=== PATIENT | female | born 1945 | race African-American/Black ===

== ENCOUNTER 2018-05-10 02:08 | Emergency (ER) | payer OTHER ==
[~2018-05-10] VITALS: Ht 162.6 cm; Wt 72.6 kg
[~2018-05-10 02:08] MED LIST: ASP325EC GT; CARV12.544 PO; DIG025T GT; HYDR12.527 GT; INSUINJ IJ; INSUINJ2 SC; LOSA-46 GT; NIFE20CA GT; SIMV10TA84 GT; [UNRECOGNIZED DRUG - CODE] GT
[2018-05-10 03:01] LABS: Basophils # (auto) 0 uL; Basophils % (auto) 0.3 % (0.0-2.0); Eosinophils # (auto) 0.1 uL; Hematocrit 47.5 % (36.0-46.0); Hemoglobin 15.8 g/dL (12.2-16.2); Lymphocytes # (auto) 0.7 uL; Lymphocytes % (auto) 6.6 % (10.0-50.0); Mean Corpuscular Hemoglobin 31.5 pg (28.0-32.0); Mean Corpuscular Hgb Conc. 33.2 g/dL (32.0-36.0); Mean Corpuscular Volume 94.9 fL (80.0-100.0); Monocytes # (auto) 0.7 uL; Neutrophils # (auto) 9.8 uL; Neutrophils % (auto) 86.1 % (37.0-80.0); Platelet Count (auto) 131 10^3/uL (140-450); Red Blood Cells 5.01 10^6/uL (4.0-5.20); Red Cell Distribution Width 14.3 % (11.8-14.3); White Blood Cell 11.3 10^3/uL (4.4-10.8)
[2018-05-10 03:19] LABS: Albumin 3.7 g/dL (3.4-5.0); BUN/Creatinine Ratio 25.6; Calcium 8.4 mg/dL (8.5-10.1); Magnesium 2.3 mg/dL (1.6-2.6); Potassium 3.6 mmol/L (3.5-5.1)
[2018-05-10 03:21] LABS: Lactic Acid w/Reflex 2.7 mmol/L (0.4-2.0)
[2018-05-10 03:25] LABS: Bilirubin, Total 0.7 mg/dL (0.2-1.0)
[2018-05-10 03:26] LABS: INR 1.13 (0.9-1.15); Partial Thromboplastin Time 24.5 sec (23.78-33.04)
[2018-05-10] MEDS ORDERED: FUROSEMIDE 20 MG/2 ML VIAL IV ONE (05:30)
[2018-05-10] MEDS ORDERED: cefTRIAXone 1GM/50ML D5W 50 ML IV ONE (05:30)
[2018-05-10 07:15] VITALS: BP 140/99
== END 2018-05-10 08:29 | disposition short-term general hospital (02) ==
LOC: ER 02:08 → EDBD 02:08 → ER 08:29
DX: I13.0 Hypertensive heart and chronic kidney disease with heart failure and stage 1 through stage 4 chronic kidney disease, or unspecified chronic kidney disease (principal); E11.22 Type 2 diabetes mellitus with diabetic chronic kidney disease; N18.9 Chronic kidney disease, unspecified; I50.9 Heart failure, unspecified; E87.1 Hypo-osmolality and hyponatremia; D72.829 Elevated white blood cell count, unspecified; E11.65 Type 2 diabetes mellitus with hyperglycemia; I48.91 Unspecified atrial fibrillation; E78.5 Hyperlipidemia, unspecified; Z90.710 Acquired absence of both cervix and uterus
CPT/HCPCS: 36415; 36600; 71045; 80053; 82805; 83605; 83735; 83880; 84484; 85025; 85379; 85610; 85730; 87040; 93005; 94660; 96365; 96375; 99285; J0696; J1940

== ENCOUNTER 2019-09-30 22:48 | Inpatient (IN) | payer OTHER, SELFPAY ==
[~2019-09-30] VITALS: Ht 165.1 cm; Wt 67.8 kg
[~2019-09-30 22:48] MED LIST changes: -HYDR12.527 GT; +HYDR12.55 GT; -LOSA-46 GT; +LOSA-69 GT
[2019-10-01] MEDS ORDERED: PIPERACILLIN-TAZOB 3.375GM 100 ML IV ONE (00:24)
[2019-10-01 00:53] LABS: Albumin 3.3 g/dL (3.4-5.0); BUN/Creatinine Ratio 42.6; Bilirubin, Total 0.6 mg/dL (0.2-1.0); Calcium 8.2 mg/dL (8.5-10.1); Magnesium 2.5 mg/dL (1.6-2.6); Total Protein 7.8 g/dL (6.4-8.2)
[2019-10-01 00:54] LABS: Urine Bacteria None Seen /hpf (None Seen); Urine WBC None Seen /hpf (0 - 5)
[2019-10-01 00:55] LABS: Basophils # (auto) 0 10 ^3/uL (0-0.2); Basophils % (auto) 0.5 % (0.0-2.0); Eosinophils # (auto) 0.1 10 ^3/uL (0-0.8); Eosinophils % (auto) 1.1 % (0.0-7.0); Hematocrit 44.1 % (36.0-46.0); Hemoglobin 14.5 g/dL (12.2-16.2); Lymphocytes # (auto) 0.8 10 ^3/uL (0.4-5.4); Lymphocytes % (auto) 13.2 % (10.0-50.0); Mean Corpuscular Hemoglobin 31.6 pg (28.0-32.0); Mean Corpuscular Hgb Conc. 32.8 g/dL (32.0-36.0); Mean Corpuscular Volume 96.5 fL (80.0-100.0); Monocytes # (auto) 0.6 10 ^3/uL (0-1.3); Monocytes % (auto) 10.5 % (0.0-12.0); Neutrophils # (auto) 4.3 10 ^3/uL (1.6-8.6); Neutrophils % (auto) 74.7 % (37.0-80.0); Nucleated Red Blood Cells % 0.2 %; Platelet Count (auto) 128 10^3/uL (140-450); Red Blood Cells 4.57 10^6/uL (4.0-5.20); Red Cell Distribution Width 14.9 % (11.8-14.3); White Blood Cell 5.7 10^3/uL (4.4-10.8)
[2019-10-01 02:08] LABS: Urine Blood Normal /uL (Negative); Urine Specific Gravity 1.017 (1.001-1.035)
[2019-10-01 02:09] LABS: Urine Amorphous Sediment Few /hpf
[2019-10-01] MEDS ORDERED: SODIUM CHLORIDE 0.9% 500 ML IV ONE (03:15)
[2019-10-01] MEDS ORDERED: ONDANSETRON HCL 4 MG/2 ML VIAL IV PRN (03:15)
[2019-10-01] MEDS ORDERED: MORPHINE SULF INJ 2 MG/ML SYRINGE 1ML IV PRN (03:15)
[2019-10-01] MEDS ORDERED: SODIUM CHLORIDE 0.9% 1,000 ML IV ONE (03:15)
[2019-10-01] MEDS ORDERED: NITROGLYCERIN 0.4 MG SL TAB SL PRN (03:15)
[2019-10-01] MEDS ORDERED: ALBUTEROL SULF 2.5 MG/0.5ML(0.5%) NEB SOLN NEB PRN (03:15)
[2019-10-01] MEDS ORDERED: DEXTROSE (50%) 50ML SYRG IV PRN (03:15)
[2019-10-01] MEDS ORDERED: TEMAZEPAM 15 MG CAP PO PRN (03:15)
[2019-10-01 03:19] VITALS: BP 97/49
--- NOTE | 2019-10-01 03:40 | NUR ---
Respiratory note: OUTSIDE OF PT'S ROOM, MONITORING PT'S RESPIRATORY STATUS. PT PRESENTING NO RESPIRATORY DISTRESS AT THIS TIME. RN WENT INTO ROOM IN FULL PPE, PT PLACED ON 4L NC, TOLERATING WELL. SPO2 NOTED AT 96%. MED NEB TX NOT INDICATED AT THIS TIME. WILL CONTINUE TO MONITOR.
[2019-10-01 05:00] VITALS: BP 146/76
--- NOTE | 2019-10-01 05:04 | NUR ---
Telemetry admit from ER [facility] admitted to Telemetry unit after SBAR received. Patient aphasic and sleeping. Patient now on continuous telemetry monitoring, tele box #4 and telemetry reading on arrival to unit is atrial fibrillation. Patient placed on bedside oxygen at 4 l/min NC. Bed is in lowest positiona nd locked. Negative pressure filtration unit in room and activated.
--- NOTE | 2019-10-01 05:05 | NUR ---
Assumed care of patient, asleep and unresponsive. Patient is aphasic. Bed is in lowest position and locked. Call light within reach. Board updated. Tele box number 4. Patient is in atrial fibrillation rhythm at 64. Tele box number matches monitor and leads are in correct placement. No S/S of distress/SOB or pain. Will continue to monitor for changes Q1hr and PRN. Addendum: 10/01/19 at 0744 by JYOTHI ESQUEDA RN Wrong note. Disregard
[2019-10-01] MEDS ORDERED: ACCU-CHEK COMFORT CURVE STRIP VI SCH (06:00)
[2019-10-01] MEDS ORDERED: InsuLIN REG 1unit/0.01ml Soln (100units/ml) SC SCH (06:00)
[2019-10-01] MEDS ORDERED: CARV25TA55 PO (06:35)
[2019-10-01] MEDS ORDERED: DILT60TA28 PO (06:35)
[2019-10-01] MEDS ORDERED: FURO1TAB33 PO (06:35)
--- NOTE | 2019-10-01 08:03 | NUR ---
Respiratory note: Assessed pt for prn medneb tx. HR 64, RR 18, SPO2 99% on 4LPM nasal cannula. Breath sounds diminished/clear. Pt sleeping comfortably in bed, no s/s of respiratory distress noted. Medneb tx not indicated at this time.
[2019-10-01 09:00] VITALS: BP 134/98
[2019-10-01] MEDS ORDERED: PHENYTOIN 100 MG/4 ML SUSP GT SCH (10:00)
[2019-10-01] MEDS ORDERED: CARVEDILOL 12.5 MG TAB PO SCH (10:00)
[2019-10-01] MEDS ORDERED: AZITHROMYCIN 500MG/ 250ML 250 ML IV SCH (10:00)
[2019-10-01] MEDS: cefTRIAXone 1GM/50ML D5W 50 ML IV SCH (10:28)
[2019-10-01] MEDS: PANTOPRAZOLE 40 MG/10 ML VIAL INJ IV SCH (10:29)
[2019-10-01] MEDS: DIGOXIN 0.25 MG TAB PO SCH (10:30)
[2019-10-01] MEDS: ENOXAPARIN SOD 40 MG/0.4 ML SYRINGE SC SCH (10:31)
--- NOTE | 2019-10-01 11:15 | NUR ---
WOUND CARE NOTE: WOUND CARE TEAM IN TO SEE PATIENT PER WOUND CARE REQUEST FOR LOW FRAN SCORE. PATIENT HAS FRAN SCORE OF 12. PATIENT ADMITTED TO [facility] FOR ATYPICAL PNEUMONIA. PATIENT ON DROPLET AND CONTACT ISOLATION. BEDSIDE NURSE ADVISED PATIENT HAS NO WOUNDS. RECOMMEND: BID/PRN APPLICATIONS WITH MOISTURE BARRIER CREAM, OPTIFOAM GENTLE SACRAL DRESSING. FREQUENT TURN SCHEDULED H3AADNK CONDITION PERMITS. PRESSURE REDISTRIBUTION WITH PILLOWS/WEDGES. DIETARY CONSULT. SKIN/WOUND CARE PLAN.
--- NOTE | 2019-10-01 12:45 | NUR ---
Dr. Krishnan at bedside placed new orders.
[2019-10-01 13:00] VITALS: BP 122/64
[2019-10-01] MEDS ORDERED: Jevity 1.2 Cal/Fiber 1 Liter GT SCH (13:00)
[2019-10-01] MEDS ORDERED: FUROSEMIDE 100 MG/10ML VIAL IV ONE (13:00)
[2019-10-01] MEDS ORDERED: ASPirin 81 mg TAB PO ONE (13:15)
[2019-10-01] MEDS: AZITHROMYCIN 500MG/ 250ML 250 ML IV SCH (14:56)
[2019-10-01 17:00] VITALS: BP 134/98
[2019-10-01] MEDS: CARVEDILOL 12.5 MG TAB PO SCH (18:18)
--- NOTE | 2019-10-01 19:25 | NUR ---
Opening Shift Note Assumed care of patient, awake and alert to self, patient turned head when name was called and grunted. No S/S of distress/SOB or pain. Call light is within reach, fall precautions are in place, bed is in lowest position, ca is in place and hung below bladder draining yellow urine. Verified placement of the peg tube by aspiration and auscultation. Residual of feeding was 15cc, replaced the residual and continued the feeding. The Jevity is currently running at 30 mls/hr. The dayshift RN explained the patient had 60 cc residual with the feeing running at 40 mls/hr, so she slowed it down. Will continue to monitor for changes Q1hr and PRN.
[2019-10-01 21:16] VITALS: BP 139/71
--- NOTE | 2019-10-01 21:39 | NUR ---
Patient's daughter called, password provided. She was updated on patient's status and current plan of care. All questions and concerns answered.
[2019-10-01] MEDS: ATORVASTATIN 20 MG TAB PO SCH (21:59)
--- NOTE | 2019-10-01 21:59 | NUR ---
2200 MEDICATION GIVEN Jevity feeding stopped, verified placement via auscultation, checked residual 10cc and replaced it, and Lipitor was given. Patient is in the semi-fowlers position. Call light is within reach. Will continue to monitor.
--- NOTE | 2019-10-01 22:51 | NUR ---
Report given to Thelma BAUM. All questions and concerns answered. Patient is sitting up in bed. Call light is within reach, bed is in lowest position, bed alarm is on.
[2019-10-02 05:00] VITALS: BP 144/77
[2019-10-02 06:00] LABS: Basophils # (auto) 0 10 ^3/uL (0-0.2); Basophils % (auto) 0.7 % (0.0-2.0); Eosinophils # (auto) 0.1 10 ^3/uL (0-0.8); Eosinophils % (auto) 2.1 % (0.0-7.0); Hematocrit 42.1 % (36.0-46.0); Hemoglobin 14.3 g/dL (12.2-16.2); Lymphocytes % (auto) 18.8 % (10.0-50.0); Mean Corpuscular Hemoglobin 32.7 pg (28.0-32.0); Monocytes # (auto) 0.6 10 ^3/uL (0-1.3); Monocytes % (auto) 11.6 % (0.0-12.0); Neutrophils # (auto) 3.4 10 ^3/uL (1.6-8.6); Neutrophils % (auto) 66.8 % (37.0-80.0); Nucleated Red Blood Cells % 0.1 %; Platelet Count (auto) 138 10^3/uL (140-450); Red Blood Cells 4.39 10^6/uL (4.0-5.20); Red Cell Distribution Width 14.8 % (11.8-14.3); White Blood Cell 5.1 10^3/uL (4.4-10.8)
[2019-10-02 06:11] LABS: Potassium 3.8 mmol/L (3.5-5.1)
[2019-10-02 06:20] LABS: BUN/Creatinine Ratio 38.9; Calcium 8.6 mg/dL (8.5-10.1)
[2019-10-02 08:37] VITALS: BP 140/63
--- NOTE | 2019-10-02 09:05 | NUR ---
2019 novel coronavirus nasopharyngeal specimen collected 10/01/2019 at 0430 resulted Not Detected from [facility].
[2019-10-02] MEDS: CARVEDILOL 12.5 MG TAB PO SCH ×2 (09:27→18:00)
--- NOTE | 2019-10-02 09:27 | NUR ---
IV HL. PEG TUBE FEEDING HELD. FLUSHED. TO RADIOLOGY FOR CT WITH STAFF. TRANSPORTED WITH MONITORING.
--- NOTE | 2019-10-02 09:50 | NUR ---
RETURNS FROM CT. SUCTIONED AIRWAY BITES ON YANKER. NOT FOLLOWING COMMANDS. WITHDRAWS TO STIMULUS. ORAL CARE PROVIDED. FACE WASHED. RESUMED FEEDINGS. HEALS FLOATED. SHEETS FREE OF WRINKLES TUBING AWAY FROM SKIN. IVPB ANTIBIOTICS INFUSING.
[2019-10-02] MEDS: DIGOXIN 0.25 MG TAB PO SCH (10:08)
[2019-10-02] MEDS: FUROSEMIDE 100 MG/10ML VIAL IV SCH (10:08)
[2019-10-02] MEDS: PANTOPRAZOLE 40 MG/10 ML VIAL INJ IV SCH (10:08)
[2019-10-02] MEDS: cefTRIAXone 1GM/50ML D5W 50 ML IV SCH (10:09)
[2019-10-02] MEDS: ENOXAPARIN SOD 40 MG/0.4 ML SYRINGE SC SCH (10:09)
--- NOTE | 2019-10-02 10:30 | NUR ---
MANASSAS VP [employer] CALLS FOR UPDATE. ANSWERED ALL QUESTIONS. PROVIDED ALL LAB RESULTS. READ IMPRESSION FROM CT TAKEN THIS AM. MANASSAS VP [employer] ASKS IF THERE IS AN ORDER TO TRANSFER HER. NOT AT THIS TIME. MANASSAS VP [employer] ASKS IF THE FAMILY WANTS HER TO BE TRANSFERRED. FAMILIES WISHES ARE UNKNOWN. I ASKED IF MANASSAS IS REQUESTING HER TO BE TRANSFERRED AND HER REPLY WAS UNKNOWN.
[2019-10-02] MEDS: ASPirin 81 mg TAB PO SCH (11:00)
[2019-10-02] MEDS: AZITHROMYCIN 500MG/ 250ML 250 ML IV SCH (11:00)
[2019-10-02] MEDS: LOSARTAN POTASSIUM 50 MG TAB PO SCH (11:00)
--- NOTE | 2019-10-02 12:00 | NUR ---
FEEDING INCREASED TO GOAL 40CC/HR. TOLERATING 3L O2 NC SAT 99%.
[2019-10-02 12:36] VITALS: BP 141/64
--- NOTE | 2019-10-02 13:00 | NUR ---
NUTRITION ASSESSMENT NOTES Please refer to link notes of nutrition screen form filed under the intervention section of the plan of care for further details. Est. Energy Needs: 9413-3058 kcal (20-25 kcal/kg BW). Est. Protein Needs: 69-83 gms/day (1.0-1.2 gms/kg BW). Will continue to monitor pertinent labs and reassess nutrient need prn Addendum: 10/02/19 at [address] Amended: Links added.
--- NOTE | 2019-10-02 13:00 | NUR ---
DAUGHTER CALLS FOR UPDATE. LUANNESINGH EXPRESSES DESIRE TO HAVE PATIENT RESUME SAME BRAND OF FEEDINGS SHE HAS BEEN GETTING AT HOME. TALKS DIRECTLY WITH DR. GUSTAFSON ON THE PHONE.
--- NOTE | 2019-10-02 14:10 | NUR ---
CALL TO CARDIAC ECHO TO ASK FOR BEDSIDE ECHO REQUESTED BY DR. GUSTAFSON EARLIER. ENDO TECH CALLS YET AGAIN AND STATES SHE HAS BEEN IN CONTACT WITH OUR ENDO TECH AND ASKS AGAIN IF THERE IS AN ORDER TO TRANSFER. MADE DR. GORDON AWARE.
[2019-10-02] MEDS ORDERED: Glucerna 1.2 Cal 1Liter BOTTLE GT SCH (14:45)
[2019-10-02 17:05] VITALS: BP 130/74
--- NOTE | 2019-10-02 18:00 | NUR ---
PT HAS BEEN MOVED TO ROOM 234. CHART PREPARED FOR TRANSPORT TO [place]. TOLERATING GOAL FEEDING RATE. LEFT ARM POSTURING, TURNED INWARD. HEALS FLOATED. REPOSITIONED OFTEN.
--- NOTE | 2019-10-02 19:20 | NUR ---
Assumed care of patient from [facility] Assumed care of patient from Alan, day shift RN, who stated that patient will not be transferred tonight due to social welfare clerk needing to set arrangements for transfer despite transfer order. Will continue to monitor. Upon entering room, patient is resting with eyes closed. Fall, safety, and seizure precautions are in place. Patient opens eyes to light pain and does not follow commands. Patient noted to move hand to scratch head. Patient is noted to have pupils equal, round, reactive to light, and accommodating. Plan of care discussed with patient, reinforcement needed. Will continue to monitor q1h and prn.
--- NOTE | 2019-10-02 20:00 | NUR ---
Jevity increase Patient's residual is 10ml/hr and has positive placement upon auscultation. Current rate is at 40ml/hr. Per MD to reach goal of 55ml/hr, patient's feeding is increased to 45ml/hr at this time. Will continue to monitor.
--- NOTE | 2019-10-02 20:30 | NUR ---
House soup paged to obtain more jevity. Awaiting response.
--- NOTE | 2019-10-02 21:30 | NUR ---
delilah soubi paged for more jevity which is running low and not available. awaiting call back
[2019-10-02] MEDS: ATORVASTATIN 20 MG TAB PO SCH (21:42)
[2019-10-02 22:00] VITALS: BP 137/63
--- NOTE | 2019-10-03 | NUR ---
Jevity increase Residual is 12ml and has positive placement upon auscultation. Per MD order, feeding increased to 50ml/hr. Will continue to monitor
--- NOTE | 2019-10-03 04:00 | NUR ---
Jevity increase Residual is 7ml and has positive placement upon auscultation. Per MD order, feeding increased to 55ml/hr. Will continue to monitor
[2019-10-03 05:51] VITALS: BP 134/68
--- NOTE | 2019-10-03 06:13 | NUR ---
DILANTIN CRITICAL Dilantin critical lab value of 38.8. Paged on-call hosp. Awaiting call-back. Will continue to monitor patient.
[2019-10-03 06:14] LABS: Anion Gap 8 (5-15); BUN/Creatinine Ratio 33.8; Blood Urea Nitrogen 22 mg/dL (7-18); Calcium 8.1 mg/dL (8.5-10.1); Carbon Dioxide 27 mmol/L (21-32); Chloride 105 mmol/L (98-107); GFR African American 114 mL/min; GFR Non-African American 94 mL/min; Glucose 129 mg/dL (74-106); Potassium 3.6 mmol/L (3.5-5.1); Sodium 140 mmol/L (136-145)
--- NOTE | 2019-10-03 07:35 | NUR ---
Opening shift note Care of patient assumed from NOC BAUTISTA munoz. Patient is AOx0, patient is aphasic but i am able to arouse her by saying her name and touch. Patient is on 3l NC, also running 1.2 jevity at 55ml/hr via PEG tube. no s/s of pain or distress noted at this time. Bed is in the lowest locked position. Will continue to monitor Q1HR and PRN.
[2019-10-03 09:00] VITALS: BP 139/75
--- NOTE | 2019-10-03 10:00 | NUR ---
Spoke to family Spoke to daughter Judith regarding patient status and transfer. Updated her that patient is stable and that i am awaiting the Physician to round to update for plan of care today.
--- NOTE | 2019-10-03 10:10 | NUR ---
Spoke to [facility] Spoke to caser up Ciaran at [facility] regarding patient status. Updated Ciaran on morning labs and vital signs. Ciaran stated that [facility] is still waiting for physician orders for transfer. I will contact Dr. Morse regarding transfer.
[2019-10-03] MEDS: cefTRIAXone 1GM/50ML D5W 50 ML IV SCH (10:14)
[2019-10-03] MEDS: PANTOPRAZOLE 40 MG/10 ML VIAL INJ IV SCH (10:15)
[2019-10-03] MEDS: ASPirin 81 mg TAB PO SCH (10:15)
[2019-10-03] MEDS: ENOXAPARIN SOD 40 MG/0.4 ML SYRINGE SC SCH (10:15)
[2019-10-03] MEDS: FUROSEMIDE 100 MG/10ML VIAL IV SCH (10:29)
[2019-10-03] MEDS: LOSARTAN POTASSIUM 50 MG TAB PO SCH (10:29)
[2019-10-03] MEDS: DIGOXIN 0.25 MG TAB PO SCH (10:29)
--- NOTE | 2019-10-03 10:35 | NUR ---
Spoke to Dr. Morse regarding the transfer to [facility]. Per MD he will be calling [facility] and proved update on patients status.
--- NOTE | 2019-10-03 11:00 | NUR ---
Spoke to family Spoke to daughter Judith, she wishes to speak to attending physician regarding test results and transfer order. I told her i will relay the message and have MD call her back.
--- NOTE | 2019-10-03 12:20 | NUR ---
Physician at bedside Per Dr Morse patient is stable to be transferred to [place]. I was present when he updated family via telephone regarding patient test results, and plan of care for today.
[2019-10-03 13:00] VITALS: BP 146/71
--- NOTE | 2019-10-03 13:15 | NUR ---
Recieved call back from [facility] Spoke to Ciaran from [facility], she spoke to patients daughter Judith regarding transfer. Per Ciaran, Judith stated not wanting her mom to be transferred to [facility]. Will update physician on status change.
--- NOTE | 2019-10-03 13:40 | NUR ---
Called family Called Judith regarding wishes to not have the patient transferred to [place]. Per Judith she would prefer to have her mother stay in [facility] and continue care here. Will update MD Morse regarding family wishes.
--- NOTE | 2019-10-03 13:43 | NUR ---
Called MD santa. Unable to reach MD Santa, left a message regarding Judith's wishes about not wanting her mother to be transferred to [place]. Awaiting call back.
--- NOTE | 2019-10-03 14:02 | NUR ---
Received call back from MD Morse. Updated MD regarding Anaid wishes to not have her mother transferred to [place]. Per MD he states he would prefer to have patient transferred to [place] and receive care there. Per MD continue current treatment plan if family decides to have patient stay at [facility]. I will call and update sushant.
--- NOTE | 2019-10-03 14:17 | NUR ---
Called family back. Confirmed with Judith that she would like her mother to stay here at [facility] and continue her current care and treatments. I updated her that MD Morse stated he would prefer her be transferred to [facility] due to her insurance being the [facility] [employer]. Judith verbalized understanding but would still like to continue care here.
[2019-10-03 17:00] VITALS: BP 128/90
[2019-10-03] MEDS: CARVEDILOL 12.5 MG TAB PO SCH (17:31)
--- NOTE | 2019-10-03 19:10 | NUR ---
closing shift note care of patient endorsed to NOC BAUTISTA Tim. No s/s of distress noted at this time.
--- NOTE | 2019-10-03 19:30 | NUR ---
Assumed care of patient. Patient is resting with eyes closed. Fall, safety, and seizure precautions are in place. Patient opens eyes to voice and does not follow commands. Patient noted to have pupils equal, round, reactive to light, and accommodating. Feeding running at 55ml/hr with positive placement upon auscultation and 11ml of residuals. Plan of care discussed with patient, reinforcement needed. Will continue to monitor q1h and prn.
[2019-10-03] MEDS: ATORVASTATIN 20 MG TAB PO SCH (21:50)
[2019-10-03 22:00] VITALS: BP 142/93
--- NOTE | 2019-10-04 04:30 | NUR ---
Patient noted to have increased respirations and increased heart rate Respirations 24 bpm and heart rate 120 bpm. On-call hosp paged. Awaiting call back.
--- NOTE | 2019-10-04 04:35 | NUR ---
Received call back from on-call hosp New orders received. Will carry out. Will continue to monitor patient.
[2019-10-04] MEDS ORDERED: IPRATROPIUM BROM 0.5 MG/2.5ML INH SOL ONE (04:43)
[2019-10-04] MEDS ORDERED: ALBUTEROL SULF 2.5 MG/0.5ML(0.5%) NEB SOLN ONE (04:43)
[2019-10-04] MEDS ORDERED: FUROSEMIDE 20 MG/2 ML VIAL IV ONE (04:45)
[2019-10-04] MEDS: IPRATROPIUM BROM 0.5 MG/2.5ML INH SOL NEB PRN (04:54)
[2019-10-04] MEDS: ALBUTEROL SULF 2.5 MG/0.5ML(0.5%) NEB SOLN NEB PRN (04:54)
[2019-10-04] MEDS ORDERED: FUROSEMIDE 100 MG/10ML VIAL IV ONE (05:15)
--- NOTE | 2019-10-04 05:15 | NUR ---
Paged on-call hosp Paged on-call hosp to update on results of new order and patient condition. Awaiting call back. Will continue to monitor patient.
--- NOTE | 2019-10-04 05:16 | NUR ---
Patient on bipap. Will continue to monitor.
[2019-10-04 05:17] VITALS: BP 139/101
--- NOTE | 2019-10-04 05:25 | NUR ---
On-call hosp called back Received call back, updated on patient status. New order received. Will carry out.
[2019-10-04] MEDS ORDERED: LORazepam 2MG/ML-1ML VIAL IV ONE (05:30)
[2019-10-04 05:42] VITALS: BP 145/102
[2019-10-04] MEDS: CARVEDILOL 12.5 MG TAB PO SCH ×2 (08:00→18:14)
--- NOTE | 2019-10-04 08:04 | NUR ---
Respiratory note: NO BREATHING TX INDICATED AT THIS TIME. WILL CONTINUE TO MONITOR PT.
--- NOTE | 2019-10-04 08:04 | NUR ---
Respiratory note: TOOK PT OFF OF BIPAP, PT RR 18, HR 75, SPO2 98%. PT IS CURRENTLY ON 3 L NASAL CANNULA. NO S/S OF RESPIRATORY DISTRESS. WILL CONTINUE TO MONITOR PT. Addendum: 10/04/19 at 0937 by RODRIGUE IRAHETA, RT RT BAUTISTA MCCLAIN IS AWARE.
[2019-10-04 09:13] VITALS: BP 109/57
[2019-10-04] MEDS: cefTRIAXone 1GM/50ML D5W 50 ML IV SCH (10:44)
[2019-10-04] MEDS: FUROSEMIDE 100 MG/10ML VIAL IV SCH (10:45)
[2019-10-04] MEDS: PANTOPRAZOLE 40 MG/10 ML VIAL INJ IV SCH (10:45)
[2019-10-04] MEDS: ENOXAPARIN SOD 40 MG/0.4 ML SYRINGE SC SCH (10:45)
[2019-10-04] MEDS: AZITHROMYCIN 500MG/ 250ML 250 ML IV SCH (10:45)
[2019-10-04] MEDS: DIGOXIN 0.25 MG TAB PO SCH (10:45)
[2019-10-04 11:50] VITALS: BP 156/82
--- NOTE | 2019-10-04 12:30 | NUR ---
Glucerna 1.2 feeding Spoke with daughter who expressed concern regarding patient receiving Jevity 1.2. She said the patient has been on it before and it "caused her to be diabetic". This nurse informed Dr. Krishnan, who said he had changed the feeding on Friday from Jevity 1.2 to Glucerna 1.2. This nurse called [facility] and informed them and requested a bottle of the Glucerna 1.2. Received a call back stating that they had spoken with the nurse Friday and was told that the patient would be transferring to [place] so they did not send the Glucerna. They stated they would send it up right away. Unknown if patient will be transferring to [place] as the patient's family stated they would rather have her treated here and didn't feel like transferring her in an ambulance to [place] in the state she is in would be a good idea. Dr. Krishnan spoke with the daughter and gave her an update.
--- NOTE | 2019-10-04 12:39 | NUR ---
NUTRITION FOLLOWUP NOTES Pt wt is 69.9 kg today Pt was sleeping when rounded this morning, on EN nutrition support of Jevity 1.2 @ 55 ml/hr. Pt with no noted distress per RN doc. Will continue to monitor and followup prn. Est. Energy Needs: 1971-1381 kcal (20-25 kcal/kg BW). Est. Protein Needs: 69-83 gms/day (1.0-1.2 gms/kg BW). Will continue to monitor pertinent labs and reassess nutrient need prn LABS: GI: BS: PES: Problem 1) Altered nutrition related lab values r/t current medical condition aeb hyperglycemia, hypoalbuminemia 2) Inadequate enteral nutrition infusion r/t current energy and protein needs aeb current EN support with Jevity 1.2 @40ml/hr not meeting energy and protein needs Comments Will continue to monitor NPO status, skin status, pertinent labs and weight trend. F/u in 2 to 3 days. Recommendations: 1) Increase goal rate of EN infusion of Jevity 1.2 Andre to @55 ml/hr, as tolerated when medically appropriate. (RESOLVED) 2) Advance gradually to oral diet when medically appropriate. 3) Continue current plan of care. Addendum: 10/04/19 at [address] PLEASE NOTE THE FOLLOWING UPDATED NOTES LABS: Gluc 129 H, Ca 8.1 L, Alb 3.3 L, Tot Protein WNL GI: Last BM unknown per RN doc. BS: 13 moderate risk. Please refer to wound assessment report for full details
[2019-10-04 17:00] VITALS: BP 138/70
--- NOTE | 2019-10-04 19:35 | NUR ---
Opening Shift Note Assumed care of patient, eyes closed resting in bed responsive to light pain. Patient has 1.2 Glucerna running through PEG. Placement confirmed upon auscultation, residuals 25ml. No S/S of distress/SOB or pain. Fall, safety, and seizure precautions in place. Instructed on POC. Will continue to monitor for changes Q1hr and PRN.
[2019-10-04 22:00] VITALS: BP 140/56
[2019-10-04] MEDS: ACETAMINOPHEN 325 MG TAB PO PRN (22:06)
[2019-10-04] MEDS: ATORVASTATIN 20 MG TAB PO SCH (22:06)
--- NOTE | 2019-10-04 22:06 | NUR ---
TEMP AXILLARY TEMP 99.1. COOLING MEASURES INITIATED, ADDITIONALLY SEE EMAR FOR ADMINISTRATION. WILL CONTINUE TO MONITOR.
--- NOTE | 2019-10-04 23:06 | NUR ---
TEMP RECHECK AXILLARY TEMP RECHECKED AT THIS TIME 97.1 F. WILL CONTINUE TO MONITOR.
[2019-10-05 05:00] VITALS: BP 131/76
[2019-10-05 05:51] LABS: Basophils # (auto) 0 10 ^3/uL (0-0.2); Basophils % (auto) 0.6 % (0.0-2.0); Eosinophils # (auto) 0.1 10 ^3/uL (0-0.8); Eosinophils % (auto) 1.7 % (0.0-7.0); Hematocrit 42.5 % (36.0-46.0); Hemoglobin 14.3 g/dL (12.2-16.2); Lymphocytes % (auto) 15.1 % (10.0-50.0); Mean Corpuscular Hemoglobin 32.7 pg (28.0-32.0); Mean Corpuscular Hgb Conc. 33.6 g/dL (32.0-36.0); Mean Corpuscular Volume 97.3 fL (80.0-100.0); Monocytes # (auto) 0.9 10 ^3/uL (0-1.3); Monocytes % (auto) 12.7 % (0.0-12.0); Neutrophils # (auto) 4.8 10 ^3/uL (1.6-8.6); Neutrophils % (auto) 69.9 % (37.0-80.0); Nucleated Red Blood Cells % 0.1 %; Platelet Count (auto) 138 10^3/uL (140-450); Red Blood Cells 4.37 10^6/uL (4.0-5.20); Red Cell Distribution Width 14.8 % (11.8-14.3); White Blood Cell 6.9 10^3/uL (4.4-10.8)
[2019-10-05 06:14] LABS: BUN/Creatinine Ratio 36.1; Calcium 8.5 mg/dL (8.5-10.1); Potassium 3.9 mmol/L (3.5-5.1)
--- NOTE | 2019-10-05 06:35 | NUR ---
ON-CALL HOSP PAGED RECEIVED PHENYTOIN CRITICAL OF 30.6. ON-CALL HOSP PAGED. AWAITING CALL-BACK. WILL CONTINUE TO MONITOR.
--- NOTE | 2019-10-05 06:40 | NUR ---
RECEIVED CALL BACK FROM ON-CALL HOSP UPDATED ON-CALL HOSP OF CRITICAL AND PATIENT STATUS. ORDER TO HOLD DILANTIN. WILL CONTINUE TO MONITOR.
--- NOTE | 2019-10-05 07:15 | NUR ---
Opening Shift Note Assumed care of patient, eyes open, resting in bed responsive to light pain. Patient has 1.2 Glucerna running through PEG. No S/S of distress/SOB or pain. Fall, safety, and seizure precautions in place. Instructed on POC. Will continue to monitor for changes Q1hr and PRN.
[2019-10-05] MEDS: ALBUTEROL SULF 2.5 MG/0.5ML(0.5%) NEB SOLN NEB PRN (07:25)
[2019-10-05] MEDS: IPRATROPIUM BROM 0.5 MG/2.5ML INH SOL NEB PRN (07:25)
[2019-10-05 09:00] VITALS: BP 133/67
--- NOTE | 2019-10-05 09:00 | NUR ---
ZERO RESIDUAL CHECKED FROM PEG TUBE FEEDING
[2019-10-05] MEDS: ASPirin 81 mg TAB PO SCH (09:49)
[2019-10-05] MEDS: AZITHROMYCIN 500MG/ 250ML 250 ML IV SCH (09:50)
[2019-10-05] MEDS: PANTOPRAZOLE 40 MG/10 ML VIAL INJ IV SCH (09:50)
[2019-10-05] MEDS: CARVEDILOL 12.5 MG TAB PO SCH ×2 (09:50→18:10)
[2019-10-05] MEDS: ENOXAPARIN SOD 40 MG/0.4 ML SYRINGE SC SCH (09:50)
[2019-10-05] MEDS: cefTRIAXone 1GM/50ML D5W 50 ML IV SCH (09:51)
[2019-10-05] MEDS: LOSARTAN POTASSIUM 50 MG TAB PO SCH (09:51)
--- NOTE | 2019-10-05 10:00 | NUR ---
HAD FORM/SOFT BOWEL MOVEMENT,PEG TUBE FEEDING PAUSED,A.M. CARE AND ORAL CARE DONE,TURN TO LEFT SIDE,TUBE FEEDING RESUMED AND HOB UP TO 45 DEGREES.
--- NOTE | 2019-10-05 12:25 | NUR ---
MD VISIT HERE TO SEE AND EXAMINED PATIENT.INFORMED OF PATIENT DAUGHTER REQUEST TO REPEAT CT SCAN,PER MD NOT REPEATING AT THIS TIME.
[2019-10-05] MEDS ORDERED: FUROSEMIDE 20 MG/2 ML VIAL IV ONE (12:30)
[2019-10-05 13:00] VITALS: BP 131/57
--- NOTE | 2019-10-05 13:00 | NUR ---
ZERO RESIDUAL CHECKED FROM PEG TUBE FEEDING
[2019-10-05] MEDS ORDERED: FUROSEMIDE 100 MG/10ML VIAL IV ONE (13:45)
--- NOTE | 2019-10-05 16:32 | NUR ---
HAD FORM/SOFT BOWEL MOVEMENT,PEG TUBE FEEDING PAUSED,P.M. CARE AND ORAL CARE DONE,TURN TO RIGHT SIDE,TUBE FEEDING RESUMED AFTER CLEANING AND HOB UP TO 45 DEGREES.
[2019-10-05 16:41] VITALS: BP 139/82
--- NOTE | 2019-10-05 18:00 | NUR ---
ZERO RESIDUAL CHECKED FROM PEG TUBE FEEDING
[2019-10-05 19:14] VITALS: BP 126/76
--- NOTE | 2019-10-05 19:14 | NUR ---
Respiratory note: NO PRN TX GIVEN AT THIS TIME, NOT INDICATED. PT SLEEPING COMFORTABLY ON 3L NC, SPO2 96%, HR 81, RR 16. BIPAP AT BEDSIDE, NOT INDICATED AT THIS TIME. PT REMAINS ON BEDSIDE PULSE OX MONITOR, NO SOB NOTED.
--- NOTE | 2019-10-05 19:20 | NUR ---
Opening Shift Note Assumed care of patient. Patient is awake. No S/S of distress/SOB or pain. Will continue to monitor for changes Q1hr and PRN. Bed locked in lowest position and bed rails up x2. Call light within reach. Toro intact, patent, draining to gravity and below level of bladder. Oxygen via NC present at 3lpm.
--- NOTE | 2019-10-05 19:28 | NUR ---
REPORT AND CONTINUATION OF CRE GIVEN TO NOC SHIFT INCOMING RN,NO DISTRESS NO DISCOMFORT.
[2019-10-05 21:46] VITALS: BP 126/76
--- NOTE | 2019-10-05 22:00 | NUR ---
Checked for residual from PEG tube. No residual present. Will continue to monitor changes Q1H and PRN.
[2019-10-05] MEDS: ATORVASTATIN 20 MG TAB PO SCH (22:21)
--- NOTE | 2019-10-06 04:30 | NUR ---
Checked for residual from PEG tube. No residual present. Will continue to monitor changes Q1H and PRN.
[2019-10-06 05:00] VITALS: BP 139/71
--- NOTE | 2019-10-06 06:38 | NUR ---
Critical lab value Lab called about elevated Dilantin level of 25.8. Lab value elevated yet decreased from last value.
--- NOTE | 2019-10-06 07:20 | NUR ---
Opening Shift Note Assumed care of patient, awake and alert but aphesic, can track with her eyes. No S/S of distress/SOB or pain.Continues on o2. Instructed on POC and to call for assist PRN, will continue to monitor for changes Q1hr and PRN.
[2019-10-06 09:00] VITALS: BP 144/79
[2019-10-06] MEDS: cefTRIAXone 1GM/50ML D5W 50 ML IV SCH (10:04)
[2019-10-06] MEDS: AZITHROMYCIN 200 MG/5 ML ORAL SUSP GT SCH (10:04)
[2019-10-06] MEDS: PANTOPRAZOLE 40 MG/10 ML VIAL INJ IV SCH (10:04)
[2019-10-06] MEDS: CARVEDILOL 12.5 MG TAB PO SCH ×2 (10:04→17:46)
[2019-10-06] MEDS: LOSARTAN POTASSIUM 50 MG TAB PO SCH (10:05)
[2019-10-06] MEDS: ASPirin 81 mg TAB PO SCH (10:05)
[2019-10-06] MEDS: ENOXAPARIN SOD 40 MG/0.4 ML SYRINGE SC SCH (10:06)
[2019-10-06] MEDS: DIGOXIN 0.125 MG TAB PO SCH (10:06)
--- NOTE | 2019-10-06 12:50 | NUR ---
RT NOTE: PRN BREATHING TX. NOT INDICATED AT THIS TIME. PT. SLEEPING, NO S/S OF RESPIRATORY DISTRESS NOTED. PT. HR 67, RR 12, POX 95% 2L N/C. PT. ON CONTINUOUS POX MONITOR.
[2019-10-06 13:00] VITALS: BP 138/76
--- NOTE | 2019-10-06 14:15 | NUR ---
assessment Patient is a 74 year old female who is aphasic. Per patients daughter Judith prior to admission patient lived home with her and functioned with assistance. Patients PCP is Dr Cleveland at [facility]. Judith is refusing transfer. Patient has a hospital bed, wheelchair, suction machine, and nebulizer for home use. Patient has been aphasic since her stroke in January 2013. Per Judith she is patients POA. I informed Judith that patients post discharge needs to be determined prior to discharge. Judith verbalized understanding. Addendum: 10/06/19 at 1422 by Tamera MILLIGAN Amended: Links added.
[2019-10-06 16:50] VITALS: BP 158/71
--- NOTE | 2019-10-06 19:30 | NUR ---
Opening Shift Note Assumed care of patient. Patient is awake. Patient Toro intact, patent, draining to gravity and below level of bladder. Patient lying in low fowlers position. Will continue to monitor for changes Q1hr and PRN. Call light within reach.
[2019-10-06 20:46] VITALS: BP 158/83
--- NOTE | 2019-10-06 21:00 | NUR ---
Checked for residual from PEG tube. 40ml residual present. Will continue to monitor changes Q1H and PRN.
--- NOTE | 2019-10-06 21:45 | NUR ---
RT paged for assessment d/t patient respiratory rate increasing and respiratory distress with accessory muscle use
--- NOTE | 2019-10-06 21:50 | NUR ---
RT present at bedside
[2019-10-06] MEDS: ATORVASTATIN 20 MG TAB PO SCH (22:30)
--- NOTE | 2019-10-07 01:20 | NUR ---
RT paged for BIPAP d/t elevated respiratory rate
--- NOTE | 2019-10-07 01:30 | NUR ---
RT present at bedside
[2019-10-07] MEDS: IPRATROPIUM BROM 0.5 MG/2.5ML INH SOL NEB PRN (01:40)
[2019-10-07] MEDS: ALBUTEROL SULF 2.5 MG/0.5ML(0.5%) NEB SOLN NEB PRN (01:40)
--- NOTE | 2019-10-07 02:00 | NUR ---
Patient breathing WNL. No longer in distress. Will continue to monitor for changes Q1H and PRN.
--- NOTE | 2019-10-07 05:03 | NUR ---
Paged hospitalist. Awaiting call back.
[2019-10-07 05:20] VITALS: BP 151/65
--- NOTE | 2019-10-07 05:31 | NUR ---
Paged hospitalist a 2nd time. Awaiting call back.
[2019-10-07 07:02] LABS: INR 1.14 (0.9-1.15)
--- NOTE | 2019-10-07 07:10 | NUR ---
Opening Shift Note Received report on the patient. Awake lying in bed. Patient shows no signs of distress at this time. Tried to discuss plan of care with the patient, but she did not respond. Bed is in the lowest position, side rails up x2, and the call light is within reach. Will continue to monitor.
[2019-10-07 07:30] VITALS: BP 133/72
[2019-10-07] MEDS: CARVEDILOL 12.5 MG TAB PO SCH ×2 (08:00→19:11)
--- NOTE | 2019-10-07 08:23 | NUR ---
Respiratory note: ASSESSED PT FOR PRN BREATHING TX. NOT INDICATED AT THIS TIME. PT WAS AWAKE, NO S/S OF RESPIRATORY DISTRESS NOTED. PT. HR 76, RR 21, POX 98% 3L N/C. PT. ON CONTINUOUS POX MONITOR.
[2019-10-07] MEDS: cefTRIAXone 1GM/50ML D5W 50 ML IV SCH (09:00)
[2019-10-07 09:07] VITALS: BP 159/72
[2019-10-07] MEDS: ASPirin 81 mg TAB PO SCH (10:55)
[2019-10-07] MEDS: PANTOPRAZOLE 40 MG/10 ML VIAL INJ IV SCH (10:55)
[2019-10-07] MEDS: AZITHROMYCIN 200 MG/5 ML ORAL SUSP GT SCH (10:55)
[2019-10-07] MEDS: LOSARTAN POTASSIUM 50 MG TAB PO SCH (10:56)
[2019-10-07] MEDS: DIGOXIN 0.125 MG TAB PO SCH (10:58)
[2019-10-07] MEDS: ENOXAPARIN SOD 40 MG/0.4 ML SYRINGE SC SCH (10:58)
[2019-10-07 13:00] VITALS: BP 155/52
--- NOTE | 2019-10-07 13:03 | NUR ---
MD Dr Krishnan at bed side.
--- NOTE | 2019-10-07 14:06 | NUR ---
Family Spoke to the daughter Judith and informed her that the patient was being discharged.
[2019-10-07 16:35] VITALS: BP 166/89
--- NOTE | 2019-10-07 17:19 | NUR ---
Guest Relations Agent Received a call from Gladys at [facility] requesting a copy of the ABG faxed to . Paged [employer] social work instructor for status on the patient's transportation and home health services. Spoke to Sheba and she will follow up and call me back.
--- NOTE | 2019-10-07 17:30 | NUR ---
Travograph Operator Sheba called back and said she called Gladys at [facility] and left a message for her to follow up on the home health and O2.
--- NOTE | 2019-10-07 17:41 | NUR ---
Family Talked to the daughter to find out how the patient is normally transported. Daughter stated they normally pick her up and put her in the car. Waiting for Sheba to give me a call back to give her the information.
--- NOTE | 2019-10-07 18:47 | NUR ---
Home O2 and Home Health Called Gladys at [facility] to follow up on the delivery of the oxygen and the home health company. Left a message for her to call me back.
[2019-10-07] MEDS: ACETAMINOPHEN 325 MG TAB PO PRN ×2 (19:11→21:30)
--- NOTE | 2019-10-07 21:10 | NUR ---
Respiratory note: PT ASSESSED FOR PRN MED NEB TX. HR 79, RR 18, SPO2 99% ON RA. NO SIGNS OF ANY RESPIRATORY DISTRESS NOTED. ADVISED PT TO CALL IF TX IS NEEDED.
--- NOTE | 2019-10-07 21:34 | NUR ---
Spoke to [facility] verifying if patient has discharge order, informed no oxygen has been delivered to bedside, and will need home health for ca care
[2019-10-07] MEDS: ATORVASTATIN 20 MG TAB PO SCH (21:38)
[2019-10-07 22:00] VITALS: BP 157/82
[2019-10-08 05:00] VITALS: BP 147/87
--- NOTE | 2019-10-08 07:07 | NUR ---
Opening Shift Note Received report on the patient. Awake lying in bed. Patient shows no signs of distress at this time. Discussed the plan of care with the patient, but not sure if she understood. Bed in lowest position, side rails up x2, and the call light is within reach. Will continue to monitor.
--- NOTE | 2019-10-08 07:25 | NUR ---
Respiratory note: ASSESSED PT FOR PRN MEDNEB TX. HR 91, RR 24, SPO2 98% ON 3LPM NASAL CANNULA. BREATH SOUNDS CLEAR/DIMINISHED. PT RESTING COMFORTABLY IN BED, NO S/S OF RESPIRATORY DISTRESS NOTED. MEDNEB TX NOT INDICATED AT THIS TIME.
[2019-10-08 07:30] VITALS: BP 133/72
--- NOTE | 2019-10-08 08:22 | NUR ---
After hours Negative [facility] Received a page from Nurse informing me there was no notes regarding home health for ca care and home oxygen. and stating [facility] follow up but did not give her information regarding the order. Placed called to [facility] spoke to ANTONIO Hahn . ANTONIO Hahn advised me [facility] was working on the order and she will ask ANTONIO Graham to page me. I never received a page from [employer]. Placed follow up called to nurse advising her ANTONIO Graham has not followed up with me regarding order and provide nurse with [facility] phone number to follow up.
--- NOTE | 2019-10-08 08:23 | NUR ---
Prescription Clerk Lenses Called Zeenat in case management to follow up on the delivery of O2 and the home health company. Zeenat stated that she has already called and is awaiting a call back. Will continue to follow up
--- NOTE | 2019-10-08 08:33 | NUR ---
0830 10/08/19 I called [facility] and spoke with change analyst Sheila regarding the home oxygen and home health. Per Sheila, she does not know which company the home oxygen was ordered from. Per Sheila, the embedded case manager come in at 9, to call back at 930 to speak with the assigned embedded case manager for an update on the discharge planning. Per Sheila, inpatient authorization is extended until 10/08/19 1000.
[2019-10-08 08:56] VITALS: BP 143/70
--- NOTE | 2019-10-08 10:13 | NUR ---
0950 10/08/19 I contacted [facility] and spoke with computer support analyst Jose Rafael, he said the assigned ed case manager is Melina and she will have to give me a call back to give me an update on the home oxygen and the transportation home.
--- NOTE | 2019-10-08 10:17 | NUR ---
1000 10/08/19 I received a call from [employer] Technician Melina regarding the home health and home oxygen. Per Melina she will contact their DME company and find out what the status is-they will contact patient regarding home health set up. Per Melina she will speak with her director to see if they will authorize transportation home.
--- NOTE | 2019-10-08 10:20 | NUR ---
WOUND CARE NOTE: Wound care into see patient for skin integrity monitoring. Patient is resting in bed in Rm. 234. Patient is awake and non-verbal. Patient appears to be in no pain using Morales Mary Faces Pain Scale. She's max assist in turning and repositioning. Her Parish score is 10. Skin assessment done with the assistance of patient's nurse, BAUTISTA Ortega. No wound noted, no pressure injury noted. Patient has smear of feces noted in care pad, margarito care given and applied Z Guard cream. New breathable care pad placed. Patient tolerated well, repositioned patient for comfort facing her Lt side, redistributed pressure points with pillows. Bed in low position with all safety precautions in placed. RECOMMENDATION: Continuation of all wound care orders prescribed by MD, continue with skin/wound plan of care, continue monitoring by wound care while patient is hospitalized.
[2019-10-08] MEDS: CARVEDILOL 12.5 MG TAB PO SCH (11:10)
[2019-10-08] MEDS: cefTRIAXone 1GM/50ML D5W 50 ML IV SCH (11:10)
[2019-10-08] MEDS: ASPirin 81 mg TAB PO SCH (11:11)
[2019-10-08] MEDS: PANTOPRAZOLE 40 MG/10 ML VIAL INJ IV SCH (11:11)
[2019-10-08] MEDS: AZITHROMYCIN 200 MG/5 ML ORAL SUSP GT SCH (11:11)
[2019-10-08] MEDS: DIGOXIN 0.125 MG TAB PO SCH (11:12)
[2019-10-08] MEDS: LOSARTAN POTASSIUM 50 MG TAB PO SCH (11:12)
[2019-10-08] MEDS: ENOXAPARIN SOD 40 MG/0.4 ML SYRINGE SC SCH (11:12)
--- NOTE | 2019-10-08 11:28 | NUR ---
1120 10/08/19 I called [facility] [phone] to ask for an update on the home oxygen delivery-was on hold for more than 15 minutes-unable to speak with a live person, unable to leave a message.
[2019-10-08 12:30] VITALS: BP 155/79
--- NOTE | 2019-10-08 12:31 | NUR ---
Kei from [facility] called and said that the portable O2 tanks would be delivered today. I asked her for a timeframe and she said she did not know.
[2019-10-08] MEDS ORDERED: FUROSEMIDE 100 MG/10ML VIAL IV ONE (14:45)
--- NOTE | 2019-10-08 15:04 | NUR ---
PEG Tube went to flush the patients PEG tube and it was clogged. Notified Dr. Romero and ordered a GI consult.
--- NOTE | 2019-10-08 15:07 | NUR ---
1500 10/08/19 Patient is authorized until today-patient to be discharged home-no need for further authorization-per patient's nurse Shannon, portable home oxygen is at bedside. I let her know that regarding the home health-[facility] will contact patient to let them know when first visit will be-patient is okay to discharge home.
--- NOTE | 2019-10-08 15:48 | NUR ---
PEG Tube tube has been unclogged.
[2019-10-08 16:10] VITALS: BP 155/79
[2019-10-08 17:00] VITALS: BP 153/85
== END 2019-10-08 17:28 | disposition home or self-care (01) | DRG 291 ==
LOC: EDBD 22:48 → ER 22:49 → TELE-WESTW 22:50 → TELE-EAST 10-01 05:01
PROVIDERS: ADMIT Nurse Practitioner; ATTEND Internal Medicine Nephrology
PROC: 5A09357 Assistance with Respiratory Ventilation, Less than 24 Consecutive Hours, Continuous Positive Airway Pressure (ICD-10-PCS; principal; 2019-10-04)
DX: I13.0 Hypertensive heart and chronic kidney disease with heart failure and stage 1 through stage 4 chronic kidney disease, or unspecified chronic kidney disease (principal); I50.43 Acute on chronic combined systolic (congestive) and diastolic (congestive) heart failure; J18.9 Pneumonia, unspecified organism; J96.01 Acute respiratory failure with hypoxia; E44.1 Mild protein-calorie malnutrition; T42.0X5A Adverse effect of hydantoin derivatives, initial encounter; I48.91 Unspecified atrial fibrillation; E11.22 Type 2 diabetes mellitus with diabetic chronic kidney disease; G40.909 Epilepsy, unspecified, not intractable, without status epilepticus; J45.909 Unspecified asthma, uncomplicated; F32.9 Major depressive disorder, single episode, unspecified; N18.9 Chronic kidney disease, unspecified; Z82.49 Family history of ischemic heart disease and other diseases of the circulatory system; Z90.710 Acquired absence of both cervix and uterus; Y92.89 Other specified places as the place of occurrence of the external cause; Z03.818 Encounter for observation for suspected exposure to other biological agents ruled out; Z93.1 Gastrostomy status; Z86.73 Personal history of transient ischemic attack (TIA), and cerebral infarction without residual deficits; Z68.24 Body mass index [BMI] 24.0-24.9, adult
CPT/HCPCS: 36415; 36600; 70450; 71045; 80048; 80053; 80162; 80185; 81001; 82728; 82805; 82962; 83036; 83735; 83880; 84484; 85025; 85610; 85652; 85730; 87040; 87070; 87804; 87807; 87880; 93005; 93306; 94640; 94660; 96365; C9113; G0378; J0696; J2543